=== PATIENT | female | born 1985 | race Caucasian/White ===

== ENCOUNTER 2017-03-03 09:52 | Emergency (ER) | payer BC, OTHER ==
[~2017-03-03] VITALS: Ht 162.6 cm; Wt 86.6 kg
[2017-03-03 09:53] VITALS: BP 102/66
[2017-03-03] MEDS ORDERED: KETOROLAC 30 MG/1 ML ONE (10:25)
[2017-03-03] MEDS ORDERED: DIAZEPAM 5 MG TABLET ONE (10:25)
[2017-03-03] MEDS ORDERED: DIAZEPAM 5 MG TABLET PO ONE (10:30)
[2017-03-03] MEDS ORDERED: KETOROLAC 30 MG/1 ML IM ONE (10:30)
== END 2017-03-03 12:09 | disposition home or self-care (01) ==
LOC: ED 12:03
DX: M62.838 Other muscle spasm (principal); G89.11 Acute pain due to trauma
CPT/HCPCS: 72050; 72072; 73010; 96372; 99284; J1885